=== PATIENT | female | born 1945 | race Caucasian/White ===

== ENCOUNTER → 2021-01-10 | Outpatient (CLI) | payer MEDICARE | LOC: CT 01-09 13:00 → OPSV 10:01 → CT 10:30 | DX: C50.811 Malignant neoplasm of overlapping sites of right female breast (principal); I97.2 Postmastectomy lymphedema syndrome; Z71.2 Person consulting for explanation of examination or test findings; E86.0 Dehydration | CPT/HCPCS: 36415; 71260; 84439; 84443; 96360; 96361; Q9965 ==

== ENCOUNTER → 2021-02-27 | Outpatient (CLI) | payer MEDICARE | LOC: KOH-I 09:31 | DX: T84.038A Mechanical loosening of other internal prosthetic joint, initial encounter (principal); M19.012 Primary osteoarthritis, left shoulder; M75.102 Unspecified rotator cuff tear or rupture of left shoulder, not specified as traumatic | CPT/HCPCS: 73200 ==

== ENCOUNTER → 2021-08-02 | Outpatient (CLI) | payer MEDICARE | LOC: OPSV 09:41 | DX: C50.811 Malignant neoplasm of overlapping sites of right female breast (principal); E86.0 Dehydration; I97.2 Postmastectomy lymphedema syndrome; Z71.2 Person consulting for explanation of examination or test findings | CPT/HCPCS: 71260; 96360; 96361 ==

== ENCOUNTER → 2022-01-04 | Outpatient (CLI) | payer MEDICARE | LOC: EXRD 13:00 → US 14:25 | DX: E04.2 Nontoxic multinodular goiter (principal) | CPT/HCPCS: 36415; 76536; 84439; 84443 ==